=== PATIENT | female | born 1950 | race Caucasian/White ===

== ENCOUNTER 2022-02-06 10:57 | Outpatient (CLI) | payer MEDICARE | END 2022-02-06 10:58 | disposition home or self-care (01) | LOC: BURRAD 10:57 | PROVIDERS: ATTEND Family Medicine | DX: M54.6 Pain in thoracic spine (principal); K80.20 Calculus of gallbladder without cholecystitis without obstruction; M41.9 Scoliosis, unspecified; S22.089A Unspecified fracture of T11-T12 vertebra, initial encounter for closed fracture | CPT/HCPCS: 72070 ==

== ENCOUNTER 2024-04-16 19:40 | Emergency (ER) | payer MEDICARE ==
[2024-04-16] MEDS ORDERED: Doxycycline 100 MG CAP ONE (20:11)
== END 2024-04-16 20:26 | disposition home or self-care (01) ==
LOC: BURERS 19:40
DX: S30.866A Insect bite (nonvenomous) of unspecified external genital organs, female, initial encounter (principal); W57.XXXA Bitten or stung by nonvenomous insect and other nonvenomous arthropods, initial encounter
CPT/HCPCS: 99282